=== PATIENT | male | born 1960 | race Caucasian/White ===

== ENCOUNTER 2020-03-13 18:09 | Emergency (ER) | payer OTHER ==
[~2020-03-13] VITALS: Ht 177.8 cm; Wt 95.9 kg
[2020-03-13 18:40] LABS: BASOPHILS % (AUTO) 0.5 % (0-1); EOSINOPHILS # (AUTO) 0.2 X10'3 (0-0.9); HEMATOCRIT 41.7 % (42.0-52.0); HEMOGLOBIN 14.5 g/dl (14.0-17.9); LYMPHOCYTES # (AUTO) 2.4 X10'3 (1.1-4.8); LYMPHOCYTES % (AUTO) 23.3 % (21-51); MEAN CORPUSCULAR HEMOGLOBIN 31.5 PG (27.0-31.0); MEAN CORPUSCULAR HGB CONC 34.7 g/dL (33.0-36.5); MEAN CORPUSCULAR VOLUME 90.7 FL (78-98); MEAN PLATELET VOLUME 8.2 FL (7.4-10.4); MONOCYTES # (AUTO) 0.8 X10'3 (0-0.9); MONOCYTES % (AUTO) 8.3 % (2-12); NEUTROPHILS # (AUTO) 6.7 X10'3 (1.8-7.7); NEUTROPHILS % (AUTO) 65.9 % (42-75); PLATELET COUNT 206 X10'3 (140-440); RED CELL DISTRIBUTION WIDTH 12.6 % (11.5-14.5); WHITE BLOOD COUNT 10.1 X10'3 (4.5-11.0)
[2020-03-13 18:53] LABS: ALANINE AMINOTRANSFERASE 36 U/L (12-78); ALKALINE PHOSPHATASE 97 IU/L (46-116); ANION GAP 8 (8-16); BILIRUBIN,TOTAL 0.6 MG/DL (0.1-1.0); BLOOD UREA NITROGEN 15 MG/DL (7-18); BUN/CREATININE RATIO 13.3 (5.4-32.0); CALCIUM 9.6 MG/DL (8.5-10.1); CHLORIDE 101 MMOL/L (99-107); CREATININE 1.13 MG/DL (0.60-1.10); GLUCOSE 99 MG/DL (70-104); SODIUM 137 MMOL/L (135-145); TOTAL PROTEIN 7.9 G/DL (6.4-8.2); eGFR 67 ML/MIN
[2020-03-13 19:05] LABS: POTASSIUM 3.9 MMOL/L (3.5-5.1)
[2020-03-13 19:06] LABS: ASPARTATE AMINO TRANSFERASE 27 U/L (10-37)
[2020-03-13 19:35] VITALS: BP 139/88
== END 2020-03-13 19:36 | disposition home or self-care (01) ==
LOC: ER 18:10
DX: R07.89 Other chest pain (principal); I10 Essential (primary) hypertension; Z87.891 Personal history of nicotine dependence; Z72.89 Other problems related to lifestyle
CPT/HCPCS: 36415; 71046; 80053; 83880; 84484; 85025; 93005; 99285